=== PATIENT | female | born 1950 | race Caucasian/White ===

== ENCOUNTER → 2021-02-27 | Outpatient (CLI) | payer MEDICARE ==
[~2021-02-27] MED LIST: ACIPHEX 20 MG T20 MG PO; ALLEGRA ALLERG180 MG PO; AMOXICILLIN 50500 MG PO; CALTRATE PLUS1 EACH PO; COLACE100 MG PO; CYMBALTA30 MG PO; FLEXERIL PO; HYDROCHLOROTHIA25 M1 PO; HYDROCODON-ACE1 EAC5 PO; LEVO-T75 MCG PO; LIPITOR 20 MG T20 M1 PO; LOSARTAN PO; METFORMIN HCL500 M3 PO; NEURONTIN 300M300 M2 PO; REQUIP 0.25 M0.25 MG PO; SUPER THERAVIT1 EACH PO
== END ==
LOC: M.PC 10:37
PROVIDERS: ATTEND Anesthesiology Pain Medicine
DX: M51.16 Intervertebral disc disorders with radiculopathy, lumbar region (principal); K21.9 Gastro-esophageal reflux disease without esophagitis; K44.9 Diaphragmatic hernia without obstruction or gangrene; M19.90 Unspecified osteoarthritis, unspecified site; E11.9 Type 2 diabetes mellitus without complications; E03.9 Hypothyroidism, unspecified; I10 Essential (primary) hypertension; F32.9 Major depressive disorder, single episode, unspecified; M54.5 Low back pain; M25.551 Pain in right hip; M25.552 Pain in left hip; G89.29 Other chronic pain; Z79.84 Long term (current) use of oral hypoglycemic drugs; Z79.899 Other long term (current) drug therapy

== ENCOUNTER → 2021-03-18 | Outpatient (CLI) | payer MEDICARE | END | disposition home or self-care (01) | LOC: M.PC 10:17 | PROVIDERS: ATTEND Anesthesiology Pain Medicine | DX: M54.16 Radiculopathy, lumbar region (principal); G89.29 Other chronic pain; I10 Essential (primary) hypertension; E11.9 Type 2 diabetes mellitus without complications; E03.9 Hypothyroidism, unspecified; E78.5 Hyperlipidemia, unspecified; M19.90 Unspecified osteoarthritis, unspecified site; K21.9 Gastro-esophageal reflux disease without esophagitis; F32.9 Major depressive disorder, single episode, unspecified; E66.9 Obesity, unspecified; Z98.890 Other specified postprocedural states; Z79.899 Other long term (current) drug therapy; Z68.42 Body mass index [BMI] 45.0-49.9, adult; Z79.891 Long term (current) use of opiate analgesic ==